=== PATIENT | female | born 1985 | race Caucasian/White ===

== ENCOUNTER 2017-09-18 18:21 | Emergency (ER) | payer MEDICAID ==
[2017-09-18 18:26] VITALS: TEMP 98.6
--- NOTE | 2017-09-18 18:36 | CPEKG ---
Heart Rate: 84 RR Interval: 714 P-R Interval: 132 QRSD Interval: 80 QT Interval: 348 QTC Interval: 412 P [place]: 39 QRS [place]: 9 T Wave [place]: 35 EKG Severity - NORMAL ECG - EKG Impression: SINUS RHYTHM Electronically Signed By: Dakota Carter 18-Sep-2017 20:52:03
--- NOTE | 2017-09-18 18:46 | EDPHY ---
H & P Time Seen by Provider: 09/18/17 18:29 HPI/ROS: CHIEF COMPLAINT: Left-sided chest pain, 23 weeks HISTORY OF PRESENT ILLNESS: Patient complains of chest pain. This started this morning around 8:30 or 9:00 a.m. When she awoke. It is a left-sided pain. It is constant. It is described as a pressure. No worse with exertion. No shortness of breath at this time. It does radiate to the back and left shoulder and arm. No trauma or injury. No cough. No fever. No abdominal pain. No urinary complaints. No vaginal bleeding or discharge. No other associated complaints or modifying factors. She had a similar issue of this in the past, she was diagnosed with tachycardia. She had a Holter monitor performed, but she never followed up with result. She does report that she has been smoking over the past 2 weeks after quitting for the 1st part of the . No other associated complaints or modifying factors. REVIEW OF SYSTEMS: Ten systems reviewed and are negative unless otherwise noted in the HPI PCP: Karen SPECIALISTS: Dr. Lorenzo PAST MEDICAL HISTORY: Tachycardia PAST SURGICAL HISTORY: No recent surgeries. SOCIAL HISTORY: Occasional smoker. She is a G 3 P 2. Lives here locally with her children. FAMILY HISTORY: Noncontributory EXAMINATION General Appearance: Alert, no distress Head: normocephalic, atraumatic Eyes: Pupils equal and round, no conjunctival pallor or injection ENT, Mouth: Mucous membranes moist Neck: Normal inspection, supple, non-tender Respiratory: Lungs are clear to auscultation. No wheezing, rhonchi or crackles Cardiovascular: Regular rate and rhythm. No murmur. No tenderness to palpation left side of the chest. Gastrointestinal: Gravid appearance with appropriate fundal height. Nontender. No tympany rigidity. No CVA tenderness. Back: non-tender, no bony abnormalities Neurological: A&O, nonfocal, normal gait Skin: Warm and dry, no rash no petechiae or purpura. Extremities: Nontender, symmetric 1+ nonpitting pedal edema. Psychiatric: Mood and affect normal DIFFERENTIAL DIAGNOSES: Including but not limited to anxiety, pleurisy, PE, pneumonia, ACS, pericarditis MDM: 6:45 p.m. Left-sided chest pain of nearly 10 hr duration. Difficult to ascertain the modifying factors to this. I do not appreciate any reproducible chest pain on exam. She is intermittently tachycardic but not hypoxemic or tachypneic. No cough or signs of pulmonary illness. EKG has been performed and read by Dr. Carter, and this is unremarkable. I discussed this with him we agree with proceeding with cardiac workup including D-dimer and chest x-ray. She is resting comfortably in no acute distress. She is on a bottle gauger. 7:20 p.m. Laboratory studies are negative. This includes negative troponin. Negative D- dimer. She does have positive leukocyte esterase and positive bacteria in the urine. Given that she is I will treat this in order urine culture. Chest x-ray is negative as read by me. Vital signs remained stable with no tachycardia. I have re-evaluated the patient at this time she is resting comfortably. No acute distress. I do feel she is stable for discharge home with high likelihood of anxiety as her etiology. I discussed this with Dr. Carter and he agrees with this plan. She has an appoint with Karen later this week. She has instructions to follow up on the urine culture on Tuesday. She has strict ED precautions for any worsening pain, exertional pain, shortness of breath or edema. She is comfortable this plan and discharged home stable condition. SUPERVISION: Patient was independently examined, but I discussed the case with my secondary supervising physician Dr. Carter Smoking Status: Light smoker Constitutional: Initial Vital Signs Temperature (C) 98.6 F 09/18/17 18:22 Heart Rate 108 H 09/18/17 18:22 Respiratory Rate 20 09/18/17 18:22 Blood Pressure 125/80 H 09/18/17 18:22 O2 Sat (%) 98 09/18/17 18:22 O2 Delivery Mode Room Air Allergies/Adverse Reactions: No Known Allergies Allergy (Unverified 09/18/17 18:22) Home Medications: Medication Instructions Recorded Cephalexin [Keflex (*)] 500 mg PO TID #21 cap 09/18/17 09/18/17 MDM/Departure - Depart Disposition: Home, Routine, Self-Care Clinical Impression: Left sided chest pain, Antepartum asymptomatic bacteriuria in second trimester Condition: Good Instructions: Chest Pain (ED), Urinary Tract Infection in Women (ED), How to Stop Smoking (ED), Cephalexin (By mouth) Additional Instructions: 1. Recommend immediate smoking cessation 2. Recommend follow up with primary care physician this week as discussed. You will need to follow-up on your urine culture that was taken here 3. Recommend Keflex as prescribed for possible UTI 4. Return to emergency department immediately for any return of pain, radiating pain, shortness of breath, fever or extremity edema 5. Recommend cardiac follow-up at the discretion of the primary care physician Prescriptions: Cephalexin [Keflex (*)] 500 mg PO TID #21 cap Referrals: [facility] [Outside] - As per Instructions Rhys Sanders MD [Medical Doctor] - As per Instructions
[2017-09-18 18:51] LABS: PLATELET COUNT 226 10^3/uL (150-400)
[2017-09-18 19:06] LABS: INR 0.96 (0.83-1.16)
[2017-09-18] MEDS ORDERED: CEPHALEXIN 500MG PREPACK#4 BTL TAKEHOME ONE (19:29)
[2017-09-18 19:43] VITALS: BP 114/73; PULSE 94; RESP 18; O2SAT 95
== END 2017-09-18 19:43 | disposition home or self-care (01) ==
DX: O99.89 Other specified diseases and conditions complicating pregnancy, childbirth and the puerperium (principal); O23.42 Unspecified infection of urinary tract in pregnancy, second trimester; B96.89 Other specified bacterial agents as the cause of diseases classified elsewhere; R07.9 Chest pain, unspecified; Z3A.23 23 weeks gestation of pregnancy